=== PATIENT | male | born 1990 | race American Indian/Alaskan Native ===

== ENCOUNTER 2016-08-03 13:12 | Emergency (ER) | payer OTHER ==
--- NOTE | 2016-08-03 16:39 | Emergency Department Report ---
ED ENT HPI - General Chief complaint: Sore Throat Stated complaint: SWOLLEN THROAT/SORE THROAT Time Seen by Provider: 08/03/16 16:38 Source: patient Mode of arrival: Ambulatory Limitations: No Limitations - History of Present Illness Initial comments: Patient is a 26-year-old male who presents to the ED complaining of pain 2 days. Patient describes pain as throbbing in nature and aching. Patient states minor difficult pain with swallowing speech and food. Patient admits nausea but no vomiting. She rates pain as 8 out of 10 in severity. She states he's been taking TheraFlu and other medication for symptomatic relief. Patient states he also takes a couple of pain medications for his low back pain which was prescribed by his primary care physician. She denies fevers/chills/vomiting/diarrhea/ sinus chest pain or shortness of breath/dizziness or headache or blurry vision. - Related Data Previous Rx's Medication Instructions Recorded Last Taken Type Azithromycin [Zithromax TAB] 500 mg PO QDAY #10 tablet 08/03/16 Unknown Rx predniSONE [Deltasone] 10 mg PO .TAPER #21 tab 08/03/16 Unknown Rx Allergies Allergy/AdvReac Type Severity Reaction Status Date / Time amoxicillin Allergy Unknown Verified 08/03/16 13:43 ED Dental HPI - General Chief complaint: Sore Throat Stated complaint: SWOLLEN THROAT/SORE THROAT Time Seen by Provider: 08/03/16 16:38 Source: patient Mode of arrival: Ambulatory Limitations: No Limitations - Related Data Previous Rx's Medication Instructions Recorded Last Taken Type Azithromycin [Zithromax TAB] 500 mg PO QDAY #10 tablet 08/03/16 Unknown Rx predniSONE [Deltasone] 10 mg PO .TAPER #21 tab 08/03/16 Unknown Rx Allergies Allergy/AdvReac Type Severity Reaction Status Date / Time amoxicillin Allergy Unknown Verified 08/03/16 13:43 ED Review of Systems ROS: Stated complaint: SWOLLEN THROAT/SORE THROAT Other details as noted in HPI Constitutional: denies: chills, fever, weakness Eyes: denies: eye pain, eye discharge, vision change ENT: denies: ear pain, throat pain Respiratory: denies: cough, shortness of breath, stridor, wheezing Cardiovascular: denies: chest pain, palpitations Endocrine: no symptoms reported Gastrointestinal: nausea. denies: abdominal pain, vomiting, diarrhea, constipation, hematochezia Genitourinary: denies: urgency, dysuria, frequency, hematuria Musculoskeletal: denies: back pain, joint swelling, arthralgia, myalgia Skin: denies: rash, lesions Neurological: denies: headache, weakness, numbness, paresthesias, confusion, abnormal gait Psychiatric: denies: anxiety, depression Hematological/Lymphatic: denies: easy bleeding, easy bruising ED Past Medical Hx - Past Medical History Previous Medical History?: No - Surgical History Past Surgical History?: Yes Additional Surgical History: Rt. arm - Social History Smoking Status: Never Smoker Substance Use Type: None - Medications Home Medications: Home Medications Medication Instructions Recorded Confirmed Last Taken Type Azithromycin [Zithromax TAB] 500 mg PO QDAY #10 tablet 08/03/16 Unknown Rx predniSONE [Deltasone] 10 mg PO .TAPER #21 tab 08/03/16 Unknown Rx ED Physical Exam - General Limitations: No Limitations General appearance: alert, in no apparent distress - Head Head exam: Present: atraumatic, normocephalic - Eye Eye exam: Present: normal appearance, PERRL, EOMI Pupils: Present: normal accommodation - ENT ENT exam: Present: normal exam, mucous membranes moist - Expanded ENT Exam Expanded Mouth exam: Present: normal external inspection. Absent: drooling, muffled voice, tongue normal, tongue elevation Teeth exam: Present: normal inspection Throat exam: Negative: tonsillar erythema, tonsillomegaly, R peritonsillar mass , L peritonsillar mass - Neck Neck exam: Present: normal inspection, full ROM, lymphadenopathy. Absent: tenderness, thyromegaly - Respiratory Respiratory exam: Present: normal lung sounds bilaterally. Absent: respiratory distress, wheezes, rales, rhonchi, stridor - Cardiovascular Cardiovascular Exam: Present: regular rate, normal rhythm. Absent: systolic murmur, diastolic murmur, rubs, gallop - GI/Abdominal GI/Abdominal exam: Present: soft, normal bowel sounds. Absent: distended, tenderness, guarding, rebound, rigid - Rectal Rectal exam: Present: deferred - Extremities Exam Extremities exam: Present: normal inspection. Absent: full ROM, tenderness, normal capillary refill, joint swelling, calf tenderness - Back Exam Back exam: Present: normal inspection - Neurological Exam Neurological exam: Present: alert, oriented X3 - Psychiatric Psychiatric exam: Present: normal affect, normal mood - Skin Skin exam: Present: warm, dry, intact, normal color. Absent: rash ED Course Vital Signs 08/03/16 13:43 Temperature 98.7 F Pulse Rate 74 Respiratory 22 Rate Blood Pressure 155/99 O2 Sat by Pulse 100 Oximetry ED Medical Decision Making - Medical Decision Making 26-year-old male presents with strep pharyngitis. Vital signs stable. Patient is in no acute or respiratory distress. ED course: Patient received one dose of Magic mouthwash And 40 mg of prednisone and 1g of azithromycin. Rapid strep test positive. Discussed results the patient. Discussed with patient at home medication. Discussed home medication of prednisone to help decrease swelling. Discussed with patient follow-up with primary care physician in 3-5 days. Sparks verbally states he understands and will comply. Discussed if symptoms worsen or new symptoms arise to return to the ED. Critical care attestation.: If time is entered above; I have spent that time in minutes in the direct care of this critically ill patient, excluding procedure time. ED Disposition Clinical Impression: Strep pharyngitis, Acute bacterial tonsillitis Disposition: DISCHARGED TO HOME OR SELFCARE Is pt being admited?: No Does the pt Need Aspirin: No Condition: Stable Instructions: Strep Throat (ED), Tonsillitis (ED) Additional Instructions: Taking medication as prescribed. Take antibiotics as prescribed. Follow-up primary care physician as discussed. Prescriptions: predniSONE [Deltasone] 10 mg PO .TAPER #21 tab Azithromycin [Zithromax TAB] 500 mg PO QDAY #10 tablet Referrals: PRIMARY CARE, [Primary Care Provider] - 3-5 Days [facility] [Outside] - 3-5 Days [facility] [Outside] - 3-5 Days [facility] [Outside] - 3-5 Days [facility] [Outside] - 3-5 Days Forms: Work/School Release Form(ED), Accompanied Note Time of Disposition: 17:57
[2016-08-03] MEDS ORDERED: DELTASONE PO ONE (17:09)
[2016-08-03] MEDS ORDERED: ZITHROMAX PO ONE (17:51)
[2016-08-03] MEDS ORDERED: LIDOCAINE VISCOUS 2% PO ONE (18:08)
[2016-08-03 18:20] VITALS: BP 151/92
[2016-08-03] MEDS ORDERED: MAGIC MOUTHWASH PO ONE (18:30)
== END 2016-08-03 18:20 | disposition home or self-care (01) ==
LOC: ED 13:12
DX: J02.0 Streptococcal pharyngitis (principal); J03.90 Acute tonsillitis, unspecified
CPT/HCPCS: 87430; 99282; J7512

== ENCOUNTER 2019-04-12 12:13 | Emergency (ER) | payer OTHER ==
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
[2019-04-12 13:37] VITALS: BP 146/95
== END 2019-04-12 13:38 | disposition home or self-care (01) ==
LOC: ED 12:13
DX: I10 Essential (primary) hypertension (principal)
CPT/HCPCS: 99282

== ENCOUNTER 2019-05-14 09:38 | Emergency (ER) | payer OTHER ==
[2019-05-14 09:48] VITALS: BP 156/79
--- NOTE | 2019-05-14 10:15 | Emergency Department Report ---
ED Recheck HPI - General Chief Complaint: Medical Clearance Stated Complaint: HYPERTENSION Time Seen by Provider: 05/14/19 10:11 Source: patient Mode of arrival: Ambulatory Limitations: No Limitations - History of Present Illness Initial Comments: 29 yo comes to ER for norvasc refill no cp no sob Here just for meds - Related Data Previous Rx's Medication Instructions Recorded Last Taken Type Amlodipine Besylate [Norvasc] 5 mg PO QDAY #30 tablet 05/14/19 Unknown Rx Allergies Allergy/AdvReac Type Severity Reaction Status Date / Time amoxicillin Allergy Unknown Verified 08/03/16 13:43 ED Review of Systems ROS: Stated complaint: HYPERTENSION Other details as noted in HPI Comment: All other systems reviewed and negative ED Past Medical Hx - Past Medical History Previous Medical History?: Yes Hx Hypertension: Yes - Surgical History Past Surgical History?: Yes Additional Surgical History: Rt. arm - Family History Family history: no significant - Social History Smoking Status: Never Smoker Substance Use Type: None - Medications Home Medications: Home Medications Medication Instructions Recorded Confirmed Last Taken Type Amlodipine Besylate [Norvasc] 5 mg PO QDAY #30 tablet 05/14/19 Unknown Rx ED Physical Exam - General Limitations: No Limitations General appearance: alert, in no apparent distress - Head Head exam: Present: atraumatic, normocephalic - Eye Eye exam: Present: normal appearance - ENT ENT exam: Present: mucous membranes moist - Neck Neck exam: Present: normal inspection - Respiratory Respiratory exam: Present: normal lung sounds bilaterally. Absent: respiratory distress - Cardiovascular Cardiovascular Exam: Present: regular rate, normal rhythm. Absent: systolic murmur, diastolic murmur, rubs, gallop - GI/Abdominal GI/Abdominal exam: Present: soft, normal bowel sounds - Rectal Rectal exam: Present: deferred - Extremities Exam Extremities exam: Present: normal inspection - Back Exam Back exam: Present: normal inspection - Neurological Exam Neurological exam: Present: alert, oriented X3 - Psychiatric Psychiatric exam: Present: normal affect, normal mood - Skin Skin exam: Present: warm, dry, intact, normal color. Absent: rash ED Course Vital Signs 05/14/19 09:45 Temperature 98.8 F Pulse Rate 77 Respiratory 18 Rate Blood Pressure 156/79 O2 Sat by Pulse 98 Oximetry ED Recheck MDM - Core Measures Measure Exclusions: not indicated - Medical Decision Making simple med refill and referral no cp no sob Vital Signs 05/14/19 09:45 Temperature 98.8 F Pulse Rate 77 Respiratory 18 Rate Blood Pressure 156/79 O2 Sat by Pulse 98 Oximetry Critical care attestation.: If time is entered above; I have spent that time in minutes in the direct care of this critically ill patient, excluding procedure time. ED Disposition Clinical Impression: Medication refill Disposition: DC-01 TO HOME OR SELFCARE Is pt being admited?: No Does the pt Need Aspirin: No Condition: Stable Additional Instructions: follow up with pcp referral below Prescriptions: Amlodipine Besylate [Norvasc] 5 mg PO QDAY #30 tablet Referrals: [facility] [Outside] - 3-5 Days Time of Disposition: 10:14
== END 2019-05-14 10:15 | disposition home or self-care (01) ==
LOC: ED 09:38
DX: I10 Essential (primary) hypertension (principal); Z76.0 Encounter for issue of repeat prescription; Z88.1 Allergy status to other antibiotic agents
CPT/HCPCS: 99282

== ENCOUNTER 2019-06-14 16:24 | Emergency (ER) | payer OTHER ==
[2019-06-14 16:35] VITALS: BP 170/89
--- NOTE | 2019-06-14 16:38 | Emergency Department Report ---
Chief Complaint: Recheck/Abnormal Lab/Rx Stated Complaint: HBP Time Seen by Provider: 06/14/19 16:33 - HPI History of Present Illness: pt is a 29 yo male who presents for refill of his amlodipine for his HTN he denies any symptoms at all he denies any ANTUNEZ, vision changes, numbness, weakness, CP, SOB states he needs a primary care doctor he states he has been having difficulty finding a PCP that will accept his insurance VSS, BP is elevated at 170/89 Patient is presenting with a non-medical emergency at this time Patient is asymptomatic and just needs a refill of his blood pressure medication will refer patient to several primary care resources that way he can have his medication and his chronic condition managed appropriately advised pt please follow up with a primary care doctor. return to the emergency room for any new or worsening symptoms. MSE screening note: Focused history performed ED Disposition for MSE Clinical Impression: Medication refill Disposition: MED SCREENING EXAM-LEFT Is pt being admited?: No Does the pt Need Aspirin: No Condition: Stable Instructions: Chronic Hypertension (ED) Additional Instructions: please follow up with a primary care doctor. return to the emergency room for any new or worsening symptoms. Referrals: BEL DUENAS MD [Staff Physician] - 2-3 Days [facility] [Outside] - 2-3 Days Time of Disposition: 16:37 Print Language: HUNGARIAN
== END 2019-06-14 17:37 | disposition left against medical advice (07) ==
LOC: ED 16:24
DX: I10 Essential (primary) hypertension (principal); Z76.0 Encounter for issue of repeat prescription
CPT/HCPCS: 99282

== ENCOUNTER 2021-04-05 14:12 | Emergency (ER) | payer SELFPAY ==
[2021-04-05 14:22] VITALS: BP 156/92
[2021-04-05] MEDS ORDERED: ACETAMINOPHEN 500 MG TAB PO ONE (16:23)
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
--- NOTE | 2021-04-05 17:41 | Emergency Department Report ---
ED Head Trauma HPI - General Chief complaint: Head Injury Stated complaint: head injury at work Time Seen by Provider: 04/05/21 16:16 Source: patient Mode of arrival: Ambulatory Limitations: No Limitations - History of Present Illness Initial comments: This is a 31-year-old male nontoxic, well nourished in appearance, no acute signs of distress presents to the ED with c/o of acute headache and neck pain that started today. Patient stated that while at work he injured his head against a metal tatiana and had near syncopal episode. Patient describes headache as diffuse with level of 8 out of 10. Patient denies thunderclap headache. Patient denies any radiation of pain. Patient other any injuries or trauma. Patient denies any mid back or lower back pains. Patient denies any visual changes. Patient denies worse headache. Patient denies any numbness, tingling, fever, chills, nausea, vomiting, chest pain, shortness of breath, stiff neck. Patient denies facial drooping or one sided weakness. Patient denies any radiation of pain. Patient and allergies amoxicillin. Complaint: head injury -: This evening Mechanism of Injury: work related injury Location: occipital Loss of Consciousness: no Previous Trauma to this Area: No Place: work Radiation: none Severity: mild Severity scale (0 -10): 8 Quality: aching Consistency: constant Associated Symptoms: syncope (near), neck pain. denies: confusion, amnesia, repetitive questioning, vision changes, nausea, vomiting, vertigo, numbness, weakness, tingling - Related Data Previous Rx's Medication Instructions Recorded Last Taken Type Amlodipine Besylate [Norvasc] 5 mg PO QDAY #30 tablet 05/14/19 Unknown Rx Acetaminophen [Acetaminophen 8 650 mg PO Q8H PRN #12 tablet.er 04/05/21 Unknown Rx Hour] Allergies/Adverse reactions: Allergies Allergy/AdvReac Type Severity Reaction Status Date / Time amoxicillin Allergy Unknown Verified 06/14/19 16:26 ED Review of Systems ROS: Stated complaint: head injury at work Other details as noted in HPI Comment: All other systems reviewed and negative Constitutional: denies: chills, fever Eyes: denies: eye pain, eye discharge, vision change ENT: denies: ear pain, throat pain Respiratory: denies: cough, shortness of breath, wheezing Cardiovascular: denies: chest pain, palpitations Endocrine: no symptoms reported Gastrointestinal: denies: abdominal pain, nausea, diarrhea Genitourinary: denies: urgency, dysuria Musculoskeletal: denies: back pain, joint swelling, arthralgia Skin: denies: rash, lesions Neurological: headache. denies: weakness, paresthesias Psychiatric: denies: anxiety, depression Hematological/Lymphatic: denies: easy bleeding, easy bruising ED Past Medical Hx - Past Medical History Hx Hypertension: Yes - Surgical History Additional Surgical History: Rt. arm - Social History Smoking Status: Never Smoker Substance Use Type: None - Medications Home Medications: Home Medications Medication Instructions Recorded Confirmed Last Taken Type Amlodipine Besylate [Norvasc] 5 mg PO QDAY #30 tablet 05/14/19 Unknown Rx Acetaminophen [Acetaminophen 8 650 mg PO Q8H PRN #12 tablet.er 04/05/21 Unknown Rx Hour] ED Physical Exam - General Limitations: No Limitations General appearance: alert, in no apparent distress - Head Head exam: Present: normocephalic - Expanded Head Exam Expanded Head exam: Present: hematoma, general tenderness. Absent: laceration, abrasion, contusion, racoon eyes, melgar's sign 1 - hematoma - Eye Eye exam: Present: normal appearance, PERRL, EOMI Pupils: Present: normal accommodation - Neck Neck exam: Present: normal inspection, full ROM. Absent: lymphadenopathy - Respiratory Respiratory exam: Absent: respiratory distress - Cardiovascular Cardiovascular Exam: Present: regular rate - Extremities Exam Extremities exam: Present: normal inspection, full ROM - Back Exam Back exam: Present: normal inspection, full ROM, paraspinal tenderness (cervical paraspinal). Absent: tenderness, CVA tenderness (R), CVA tenderness (L), muscle spasm, vertebral tenderness, rash noted - Neurological Exam Neurological exam: Present: alert, oriented X3, normal gait - Expanded Neurological Exam Expanded Patient oriented to: Present: person, place, time Cranial nerves: EOM's Intact: Normal, Facial Sensation: Normal Cerebellar function: Finger to Nose: Normal Upper motor neuron: Pronator Drift: Normal, Sensory Extinction: Normal Motor strength exam: RUE: 5, LUE: 5, RLE: 5, LLE: 5 Best Eye Response ([place]): (4) open spontaneously Best Motor Response ([place]): (6) obeys commands Best Verbal Response (Shreya): (5) oriented Shreya Total: 15 - Psychiatric Psychiatric exam: Present: normal affect, normal mood - Skin Skin exam: Present: warm, dry, intact, normal color. Absent: rash ED Course Vital Signs 04/05/21 14:19 Temperature 98.9 F Pulse Rate 76 Respiratory 16 Rate Blood Pressure 156/92 [Left] O2 Sat by Pulse 96 Oximetry - Reevaluation(s) Reevaluation #1: 04/05/21 17:45 Patient is speaking in full sentences with no signs of distress noted. - Radiology Data [facility] [address] [id number] Cat Scan Report Signed Patient: DAPHNEY MARIN MR#: [id number] : 1990 Acct:[id number] Age/Sex: 31 / M ADM Date: 04/05/21 Loc: ED Attending Dr: Ordering Physician: DEO BRAR NP Date of Service: 04/05/21 Procedure(s): CT head/brain wo con Accession Number(s): [id number] cc: DEO BRAR NP CT HEAD WITHOUT CONTRAST INDICATION / CLINICAL INFORMATION: pain s/p injury. TECHNIQUE: All CT scans at this location are performed using CT dose reduction for ALARA by means of automated exposure control. COMPARISON: None available. FINDINGS: HEMORRHAGE: No evidence of intracranial hemorrhage or extra-axial fluid collection. EXTRA-AXIAL SPACES: Cortical sulci, sylvian fissures and basilar cisterns have an unremarkable appearance. VENTRICULAR SYSTEM: The third and lateral ventricles are of normal size and configuration. CEREBRAL PARENCHYMA: No areas of abnormal brain parenchymal attenuation are iden tified. There is no indication of recent infarction. MIDLINE SHIFT OR HERNIATION: There is no mass effect. CEREBELLUM / BRAINSTEM: Brainstem and cerebellum have an unremarkable appearance. MIDLINE STRUCTURES:No abnormalities of the pituitary gland or pineal region are identified. INTRACRANIAL VESSELS:No abnormalities are identified on this noncontrast head CT. ORBITS: visualized portions of the orbits have an unremarkable appearance. SOFT TISSUES of HEAD: A large right parietal scalp hematoma is demonstrated. CALVARIUM: Evaluation of bone windows reveals no abnormalities. PARANASAL SINUSES / MASTOID AIR CELLS: Visualized portions of the paranasal sinuses are free from inflammatory mucosal disease. Mastoid air cells are normally pneumatized. ADDITIONAL FINDINGS: None. IMPRESSION: 1. No significant intercranial abnormality. 2. Large right parietal scalp hematoma. Signer Name: Ascencion Cardona MD Signed: 04/05/2021 5:02 PM Workstation Name: [id number] Transcribed By: Dictated By: Ascencion Cardona MD Electronically Authenticated By: Ascencion Cardona MD Signed Date/Time: 04/05/21 170 DD/ 58 TD/TT: [facility] [address] [place] [address] Cat Scan Report Signed Patient: DAPHNEY MARIN MR#: [id number] : 1990 Acct:[id number] Age/Sex: 31 / M ADM Date: 04/05/21 Loc: ED Attending Dr: Ordering Physician: DEO BRAR NP Date of Service: 04/05/21 Procedure(s): CT cervical spine wo con Accession Number(s): [id number] cc: DEO BRAR NP CT CERVICAL SPINE WITHOUT CONTRAST INDICATION / CLINICAL INFORMATION: pain s/p injury. TECHNIQUE: Axial CT images were obtained through the cervical spine. Sagittal and coronal reformatted images were produced. All CT scans at this location are performed using CT dose reduction for ALARA by means of automated exposure control. COMPARISON: None available. FINDINGS: Limitations: 1 unremarkable artifact secondary to patient body habitus is limiting factor on this study. This is most problematic at and below the level of the C4-5 intervertebral disc. ALIGNMENT: Loss of the normal cervical lordosis is noted. Alignment is otherwise unremarkable. Is no indication of traumatic subluxation. VERTEBRAE: No indication of fracture. DISC SPACES: Disc height is fairly well- maintained throughout cervical region. DEGENERATIVE CHANGES: Anterior osteophyte is observed at the C3-4 level. Uncovertebral arthropathy is present at the C4-5 and C5-6 levels. Prominent facet arthritic changes are noted at the C5-6 level. These degenerative changes are associated with neuroforaminal narrowing at the C4-5 and C5-6 levels. Central spinal canal appears to be adequately maintained. CRANIOCERVICAL JUNCTION:No significant abnormality. SPINAL CANAL: Central spinal canal is adequately maintained throughout. PARASPINAL SOFT TISSUES: No significant abnormality. LUNG APICES: The lungs are largely excluded from this examination. IMPRESSION: 1. Limited study secondary to quantum mottle artifact. 2. No definite indication of fracture. No evidence of traumatic subluxation. 3. Degenerative changes C4-5 and C5-6 levels as noted above. Signer Name: Ascencion Cardona MD Signed: 04/05/2021 5:06 PM Workstation Name: [id number] Transcribed By: Dictated By: Ascencion Cardona MD Electronically Authenticated By: Ascencion Cardona MD Signed Date/Time: 04/05/211705 DD/ 01 TD/TT: - Medical Decision Making 31-year-old male that presents with headache, neck pain with scalp hematoma. Patient is stable and was examined by me. Patient is notified of the CT results with no questions noted by the patient. Patient received Tylenol for pain which stated symptoms improved and subsided. Patient discharged with naproxen. Otherwise physical exam is unremarkable. Patient was instructed to my follow at time of discharge, the patient does not seem toxic or ill in appearance. No acute signs of distress noted. Patient agrees to discharge treatment plan of care. No further questions noted by the patient. - NEXUS Criteria Focal neurological deficit present: No Midline spinal tenderness present: No Altered level of consciousness: No Intoxication present: No Distracting injury present: No NEXUS results: C-Spine can be cleared clinically by these results. Imaging is not required. Critical care attestation.: If time is entered above; I have spent that time in minutes in the direct care of this critically ill patient, excluding procedure time. ED Disposition Clinical Impression: Neck pain Head injury Qualifiers: Encounter type: initial encounter Qualified Code(s): S09.90XA - Unspecified injury of head, initial encounter Headache Qualifiers: Headache type: unspecified Headache chronicity pattern: acute headache Int ractability: not intractable Qualified Code(s): R51.9 - Headache, unspecified Disposition: 01 HOME / SELF CARE / HOMELESS Is pt being admited?: No Does the pt Need Aspirin: No Condition: Stable Additional Instructions: Follow-up with a primary care doctor in 3-5 days or if symptoms worsen and continue return to emergency room as soon as possible. Prescriptions: Acetaminophen [Acetaminophen 8 Hour] 650 mg PO Q8H PRN #12 tablet.er PRN Reason: Pain , Severe (7-10) Referrals: PRIMARY CAREMD [Referring] - 3-5 Days BEL DUENAS MD [Staff Physician] - 3-5 Days Forms: Work/School Release Form(ED) Time of Disposition: 17:50
== END 2021-04-05 17:59 | disposition home or self-care (01) ==
LOC: ED 14:12
DX: S09.90XA Unspecified injury of head, initial encounter (principal); M54.2 Cervicalgia; I10 Essential (primary) hypertension; Z88.1 Allergy status to other antibiotic agents; Z79.899 Other long term (current) drug therapy; X58.XXXA Exposure to other specified factors, initial encounter; Y93.89 Activity, other specified; Y92.488 Other paved roadways as the place of occurrence of the external cause; Y99.8 Other external cause status
CPT/HCPCS: 70450; 72125; 99283